=== PATIENT | female | born 1965 | race Caucasian/White ===

== ENCOUNTER 2019-10-30 12:15 | Emergency (ER) | payer OTHER ==
[2019-10-30 12:38] VITALS: BP 138/80; PULSE 91; TEMP 98.2; BMI 25.4
[2019-10-30] MEDS ORDERED: IBUPROFEN 400 MG TABLET (FP) PO ONE ×2 (12:51→12:52)
--- NOTE | 2019-10-30 13:04 | PDOC ---
History of Present Illness - General Chief Complaint: Cold Symptoms Stated Complaint: COLD LIKE SYMPTOMS Time Seen by Provider: 10/30/19 12:38 History Source: Patient - History of Present Illness Timing/Duration: reports: other Associated Symptoms: reports: cough, fever/chills, muscle aches, nasal congestion, nasal drainage, sore throat. denies: earache, facial pain, headache , shortness of breath, wheezing Past History - Past Medical History Allergies/Adverse Reactions: Allergies Allergy/AdvReac Type Severity Reaction Status Date / Time No Known Allergies Allergy Verified 10/30/19 12:31 COPD: No CHF: No DVT: No - Immunization History Immunization Up to Date: Yes - Psycho Social/Smoking Cessation Hx Smoking History: Never smoked Hx Alcohol Use: No Drug/Substance Use Hx: No Review of Systems - Review of Systems Constitutional: Yes: Chills, Fever, Malaise HEENTM: Yes: Throat Pain. No: Ear Pain Respiratory: Yes: Cough. No: Shortness of Breath, Wheezing ABD/GI: No: Diarrhea, Nausea, Vomiting *Physical Exam - Vital Signs Last Vital Signs Temp Pulse Resp BP Pulse Ox 98.2 F 91 H 16 138/80 100 10/30/19 12:32 10/30/19 12:32 10/30/19 12:32 10/30/19 12:32 10/30/19 12:32 - Physical Exam General Appearance: Yes: Appropriately Dressed. No: Apparent Distress HEENT: positive: Normal ENT Inspection, Normal Voice, Scleral Icterus (R), Scleral Icterus (L). negative: Muffled/Hoarse voice Neck: positive: Supple. negative: Lymphadenopathy (R), Lymphadenopathy (L) Respiratory/Chest: positive: Lungs Clear, Normal Breath Sounds. negative: Respiratory Distress Cardiovascular: positive: Regular Rate, S1, S2 Integumentary: positive: Dry, Warm Neurologic: positive: Fully Oriented, Alert, Normal Mood/Affect ED Treatment Course - Medications Given in the ED: ED Medications Discontinued Medications Generic Name Dose Route Start Last Admin Trade Name Freq PRN Reason Stop Dose Admin Ibuprofen 800 mg 10/30/19 12:51 10/30/19 12:57 Motrin - PO 10/30/19 12:52 800 mg ONCE ONE Administration Medical Decision Making - Medical Decision Making 10/30/19 13:03 54 yo F, no sig hx, here w/ malaise, bodyaches, cough, sore throat, subj fever and chills x 3 days. Taking OTC meds w/ some relief see exam Viral syndrome Exam unremarkable Flu neg Dc w/ supportive tx Discharge - Discharge Information Problems reviewed: Yes Clinical Impression/Diagnosis: Viral syndrome Condition: Good - Follow up/Referral Referrals: Brook Tamayo [Primary Care Provider] - - Patient Discharge Instructions Patient Printed Discharge Instructions: DI for Viral Syndrome - Post Discharge Activity
== END 2019-10-30 13:28 | disposition home or self-care (01) ==
LOC: JER 12:15 → JERFT 12:15
DX: B34.9 Viral infection, unspecified (principal)
CPT/HCPCS: 87804; 99282-25

== ENCOUNTER 2021-01-13 11:01 | Emergency (ER) | payer OTHER ==
[2021-01-13 11:07] VITALS: BMI 29.2
[2021-01-13] MEDS ORDERED: SODIUM CHLORIDE 500 ML IV STA (12:51)
[2021-01-13 13:28] LABS: HEMATOCRIT 37.4 % (32.4-45.2); HEMOGLOBIN 12.7 GM/dL (10.7-15.3); MCH 30.5 pg (25.7-33.7); MCHC 33.9 g/dl (32.0-36.0); MEAN CELL VOLUME 90.1 fl (80-96); MEAN PLT VOLUME 7.8 fl (7.5-11.1); PLATELET COUNT 303 K/MM3 (134-434); RBC 4.15 M/mm3 (3.60-5.2); RDW 12.9 % (11.6-15.6); WHITE BLOOD COUNT 5.4 K/mm3 (4.0-10.0)
[2021-01-13 13:35] LABS: PH,URINE 8.5 (5.0-8.0); URINE APPEARANCE CLEAR; URINE BILIRUBIN NEGATIVE (NEGATIVE); URINE COLOR YELLOW; URINE GLUCOSE (UA) NEGATIVE (NEGATIVE); URINE KETONE NEGATIVE (NEGATIVE); URINE LEUK ESTERASE NEGATIVE (NEGATIVE); URINE NITRITE NEGATIVE (NEGATIVE); URINE PROTEIN NEGATIVE (NEGATIVE); URINE UROBILINOGEN 0.2 mg/dL (0.2-1.0)
[2021-01-13 13:53] LABS: CHLORIDE 107 mmol/L (98-107); POTASSIUM 4.1 mmol/L (3.5-5.1); SODIUM 140 mmol/L (136-145)
[2021-01-13 13:54] LABS: CALCIUM 8.7 mg/dL (8.5-10.1)
[2021-01-13 13:55] LABS: ANION GAP 3 MMOL/L (8-16); BLOOD UREA NITROGEN 13.5 mg/dL (7-18); CO2 30 mmol/L (21-32); GLUCOSE,RANDOM 97 mg/dL (74-106)
[2021-01-13 13:58] LABS: CREATININE 0.7 mg/dL (0.55-1.3); SGOT/AST 24 U/L (15-37); SGPT/ALT 39 U/L (13-61)
[2021-01-13 13:59] LABS: BILIRUBIN,TOTAL 0.4 mg/dL (0.2-1)
[2021-01-13 14:00] LABS: ALK PHOS 115 U/L (45-117); TOT PROT 7.3 g/dl (6.4-8.2)
[2021-01-13 15:39] VITALS: BP 123/80; PULSE 62; TEMP 98.3
== END 2021-01-13 15:49 | disposition home or self-care (01) ==
LOC: JER 11:01
PROC: 3E0337Z Introduction of Electrolytic and Water Balance Substance into Peripheral Vein, Percutaneous Approach (ICD-10-PCS; principal; 2021-01-13)
DX: R53.1 Weakness (principal); R41.81 Age-related cognitive decline
CPT/HCPCS: 36415; 80053; 81003; 82550; 84484; 84703; 85027; 87086; 93005; 93010; 99284-25

== ENCOUNTER 2021-09-12 13:55 | Emergency (ER) | payer OTHER ==
[2021-09-12 14:18] VITALS: BP 142/79; PULSE 89; TEMP 97.8; BMI 29.5
[2021-09-12] MEDS ORDERED: ACETAMINOPHEN/CAFFEINE/BUTALBITAL 1 TAB PO ONE (15:45)
[2021-09-12] MEDS ORDERED: ACETAMINOPHEN/CAFFEINE/BUTALBITAL 1 TAB ONE (16:31)
[2021-09-12 17:09] LABS: BASO % 0.6 % (0-2.0); EOS % 1.9 % (0-4.5); HEMATOCRIT 39.4 % (32.4-45.2); HEMOGLOBIN 13.8 GM/dL (10.7-15.3); LYMPH % 37.4 % (8-40); MCH 30.2 pg (25.7-33.7); MCHC 34.9 g/dl (32.0-36.0); MEAN CELL VOLUME 86.7 fl (80-96); MEAN PLT VOLUME 7.3 fl (7.5-11.1); MONO % 5.3 % (3.8-10.2); NEUT % 54.8 % (42.8-82.8); PLATELET COUNT 303 10^3/uL (134-434); RBC 4.55 M/mm3 (3.60-5.2); RDW 13.2 % (11.6-15.6); WHITE BLOOD COUNT 5.6 K/mm3 (4.0-10.0)
[2021-09-12 17:28] LABS: ALBUMIN 4.3 g/dl (3.4-5.0); CALCIUM 9.2 mg/dL (8.5-10.1)
[2021-09-12 17:31] LABS: CREATININE 0.8 mg/dL (0.55-1.3)
[2021-09-12 17:33] LABS: BILIRUBIN,TOTAL 0.4 mg/dL (0.2-1); TOT PROT 7.9 g/dl (6.4-8.2)
== END 2021-09-12 17:26 | disposition home or self-care (01) ==
LOC: JER 13:55 → JERFT 13:55
DX: G44.219 Episodic tension-type headache, not intractable (principal)
CPT/HCPCS: 36415; 71046-TC-FY; 80053; 85025; 99284-25; C9803; U0003; U0005

== ENCOUNTER 2023-12-19 14:24 | Emergency (ER) | payer OTHER ==
[2023-12-19 14:37] VITALS: BP 113/70; PULSE 68; RESP 16; TEMP 97.9; BMI 27.9
[2023-12-19 15:11] LABS: PH,URINE 6.5 (5.0-8.0); URINE APPEARANCE CLEAR; URINE BILIRUBIN NEGATIVE (NEGATIVE); URINE COLOR YELLOW; URINE GLUCOSE (UA) NEGATIVE (NEGATIVE); URINE KETONE NEGATIVE (NEGATIVE); URINE LEUK ESTERASE NEGATIVE (NEGATIVE); URINE NITRITE NEGATIVE (NEGATIVE); URINE PROTEIN NEGATIVE (NEGATIVE); URINE UROBILINOGEN 0.2 mg/dL (0.2-1.0)
[2023-12-19 15:13] LABS: BASO % 0.6 % (0-2.0); EOS % 0.9 % (0-4.5); HEMATOCRIT 39.9 % (32.4-45.2); HEMOGLOBIN 13.6 GM/dL (10.7-15.3); LYMPH % 30.7 % (8-40); MCH 30.3 pg (25.7-33.7); MCHC 34.2 g/dl (32.0-36.0); MEAN CELL VOLUME 88.7 fl (80-96); MEAN PLT VOLUME 7.1 fl (7.5-11.1); MONO % 6.7 % (3.8-10.2); NEUT % 61.1 % (42.8-82.8); PLATELET COUNT 281 10^3/uL (134-434); RDW 13.3 % (11.6-15.6); WHITE BLOOD COUNT 6.5 K/mm3 (4.0-10.0)
[2023-12-19 15:36] LABS: CALCIUM 9.5 mg/dL (8.5-10.1)
[2023-12-19 15:37] LABS: ALBUMIN 4.2 g/dl (3.4-5.0); BLOOD UREA NITROGEN 14.4 mg/dL (7-18)
[2023-12-19 15:40] LABS: CREATININE 0.7 mg/dL (0.55-1.3)
[2023-12-19 15:41] LABS: BILIRUBIN,TOTAL 0.7 mg/dL (0.2-1); TOT PROT 7.6 g/dl (6.4-8.2)
[2023-12-19] MEDS: SODIUM CHLORIDE 0.9% 500 ML INFUS.BAG IV ONE (16:05)
== END 2023-12-19 18:19 | disposition home or self-care (01) ==
LOC: JER 14:24
DX: R10.13 Epigastric pain (principal); R74.8 Abnormal levels of other serum enzymes
CPT/HCPCS: 36415; 80053; 81003; 83690; 85025; 87086; 99283-25

== ENCOUNTER 2024-09-03 09:58 | Emergency (ER) | payer OTHER ==
[2024-09-03 10:17] VITALS: BP 128/82; PULSE 75; RESP 18; TEMP 97.7; BMI 27.1
[2024-09-03] MEDS ORDERED: METOCLOPRAMIDE HCL INJECTION 10 MG/2 ML VIAL ONE (11:10)
[2024-09-03] MEDS ORDERED: ACETAMINOPHEN INJECTION 100 ML ONE (11:10)
[2024-09-03] MEDS: ACETAMINOPHEN 1000 MG/100 ML BAG IVPB ONE (11:21)
[2024-09-03] MEDS: METOCLOPRAMIDE HCL INJECTION 10 MG/2 ML VIAL IVPUSH ONE (11:22)
[2024-09-03 13:52] LABS: HIV INTERPRETATION NEGATIVE (NEGATIVE)
== END 2024-09-03 12:27 | disposition home or self-care (01) ==
LOC: JER 09:58
PROC: 3E033NZ Introduction of Analgesics, Hypnotics, Sedatives into Peripheral Vein, Percutaneous Approach (ICD-10-PCS; principal; 2024-09-03)
PROC: 3E033GC Introduction of Other Therapeutic Substance into Peripheral Vein, Percutaneous Approach (ICD-10-PCS; 2024-09-03)
PROC: 3E033GC Introduction of Other Therapeutic Substance into Peripheral Vein, Percutaneous Approach (ICD-10-PCS; 2024-09-03)
DX: R51.9 Headache, unspecified (principal); R11.0 Nausea
CPT/HCPCS: 36415; 70450-TC; 86803; 87389; 99284-25; J0131